=== PATIENT | male | born 1965 | race Caucasian/White ===

== ENCOUNTER 2022-12-05 09:47 | Emergency (ER) | payer OTHER, SELFPAY ==
[2022-12-05 09:48] VITALS: BP 209/112; PULSE 100; RESP 16; TEMP 36.3; O2SAT 97; BMI 37.8
--- NOTE | 2022-12-05 10:08 | CT_ITS ---
STUDY: CT ABDOMEN AND PELVIS WITHOUT CONTRAST REASON FOR EXAM: Male, 57 years old. R flank Pain. 2 day history of right lower quadrant pain and nausea. RADIATION DOSAGE (If Supplied By Facility): CTDIvol = ( 20.23 ) mGy, DLP = ( 1152.59 ) mGycm TECHNIQUE: Transaxial images were obtained from the dome of the diaphragm to the symphysis pubis without oral contrast, and without intravenous contrast. Sagittal and coronal images were reconstructed. Individualized dose optimization techniques were used for this CT. COMPARISON: None. FINDINGS: The visualized lung bases are unremarkable. The visualized portions of the heart are within normal limits. There is decreased attenuation of the liver consistent with steatosis. Normal gallbladder and extrahepatic biliary system. Normal spleen. Normal pancreas. Normal bilateral adrenal glands. Normal right kidney. Normal left kidney. Normal visualized stomach. Normal small intestine. Normal colon. The appendix is visualized and appears normal. There is scattered atherosclerotic calcification of the abdominal aorta, without a demonstrated aneurysm. Normal inferior vena cava. There is borderline retroperitoneal lymphadenopathy with enlarged nodes no greater than 10mm in the short axis diameter. Normal urinary bladder. Normal abdominal wall. Normal osseous structures. CT/Abdomen/Pelvis without Cont IMPRESSION: Fatty infiltration of the liver. No evidence of obstructive uropathy. Electronically Signed: Yared Albrecht MD at 11:06 EDT ,
--- NOTE | 2022-12-05 10:10 | EDS_ITS ---
HPI <LUIS E Toribio - Last Filed: 12/05/22 13:01> History of Present Illness Chief Complaint: Flank Pain Narrative Narrative: Patient presenting today with pain to his right mid back that radiates into his right upper quadrant and right lower quadrant that he has had for the past 2 days. He reports that the pain is worsening. He is nauseous without any vomiting. He reports that it is a constant dull ache. He denies a history of kidney stones. He denies a history of any previous abdominal surgery, fever, chills, diarrhea, and urinary symptoms. Patient also reports that he has a history of hypertension but has been out of his medication for 2 weeks, he is unsure what he takes and he is from [place] but is in town visiting a friend. PFSH <LUIS E Toribio - Last Filed: 12/05/22 13:01> PENDING SALE TO [facility] Medical History no medical history Home Medications amlodipine 5 mg tablet (Norvasc) 5 mg PO DAILY #14 tabs 12/05/22 [Rx Last Taken Unknown] naproxen 500 mg tablet (Naprosyn) 500 mg PO BID PRN pain #10 tabs 12/05/22 [Rx Last Taken Unknown] Allergy/AdvReac Type Severity Reaction Status Date / Time No Known Allergies Allergy Verified 12/05/22 09:50 Social History Smoking Status: Unknown if ever smoked ROS <LUIS E Toribio - Last Filed: 12/05/22 13:01> ROS ED Constitutional Constitutional ED: Denies chills or fever(s) Cardiovascular Cardiovascular: Denies chest pain or palpitations Respiratory/Chest Respiratory/Chest: Denies cough or dyspnea Gastrointestinal Gastrointestinal: Reports abdominal pain and nausea; Denies constipation, diarrhea or vomiting Genitourinary Genitourinary ED: Denies dysuria, hematuria or urinary urgency Musculoskeletal Musculoskeletal: Reports back pain; Denies arthralgias or myalgias Integumentary Denies abscess, Abrasions or rash Neurologic Neurologic: Denies weakness EXAM <LUIS E Toribio - Last Filed: 12/05/22 13:01> Physical Exam Const Vital Signs: 12/05/22 09:48 12/05/22 09:55 12/05/22 11:40 Temperature 97.4 F L Temperature Source Temporal Pulse Rate 100 96 Respiratory Rate 16 Respiratory Pattern Normal Blood Pressure 209/112 H Blood Pressure Mean 144 Pulse Ox 97 98 Oxygen Delivery Method Room Air Positive well nourished, well developed and no apparent distress General Appearance ED: well developed HEENT Reports normocephalic and head/scalp atraumatic Mouth ED: Yes moist mucous membranes normal Eyes PERRL and EOMs intact bilaterally Neck full ROM and supple Chest Wall inspection of chest normal Resp normal respiratory effort and clear to auscultation bilaterally Cardio regular rate and regular rhythm GI soft to palpation, non-tender, non-distended and no masses GI Narrative: RUQ tenderness to palpation Back/Spine normal ROM and normal to inspection Extremity normal to inspection and full ROM Neuro oriented x3, CN's II-XII intact bilaterally, moves all extremities, no focal motor deficits and no sensory deficits noted Sensorium / Orientation: awake and alert Psych mental status grossly normal and thought process normal Skin no rashes or lesions noted and no wounds <Dr. Max Castro DO - Last Filed: 12/05/22 12:55> Physical Exam Const Vital Signs: 12/05/22 09:48 12/05/22 09:55 12/05/22 11:40 Temperature 97.4 F L Temperature Source Temporal Pulse Rate 100 96 Respiratory Rate 16 Respiratory Pattern Normal Blood Pressure 209/112 H Blood Pressure Mean 144 Pulse Ox 97 98 Oxygen Delivery Method Room Air [facility] <LUIS E Toribio - Last Filed: 12/05/22 13:01> [facility] Narrative Medical decision making narrative: Patient presenting today due to right-sided mid back pain that radiates into his right upper quadrant that he has had over the past few days. 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 He denies a history of kidney stones as well as urin joel symptoms. He feels nauseous due to the pain but has not had any vomiting. He also reports a history of hypertension but is unsure what medications he is supposed to be taking as his PCP retired and he has been out of his blood pressure meds for a few weeks. He is not from the area and is visiting a friend from out of town. I will give him a short course of Norvasc and have given him instructions to follow-up with a PCP in his area. He is not complaining of any chest pain here or shortness of breath. Labs obtained to rule out leukocytosis, anemia, electrolyte abnormality, hepatobiliary etiology, UTI and PATY. Patient has been given IV Zofran and Toradol. On reexamination he reports that his pain is improved. Labs overall are unremarkable aside from a slightly elevated bilirubin and hypokalemia. CT negative for any acute findings. Will give patient a prescription for naproxen to treat possible muscular etiology. He has been given return instructions and be discharged home in stable condition. He is comfortable with plan. Lab Data Attestation: I reviewed the patient's lab results. Labs: Laboratory Results - last 24 hr 12/05/22 12/05/22 10:15 10:30 WBC 5.6 RBC 5.11 Hgb 15.7 Hct 45.6 MCV 89.2 MCH 30.7 MCHC 34.4 RDW Std Deviation 39.8 RDW Coeff of Suzi 12.3 Plt Count 239 MPV 9.9 Immature Gran % (Auto) 0.500 Neut % (Auto) 75.6 H Lymph % (Auto) 13.2 L Chambers % (Auto) 9.3 Eos % (Auto) 0.7 Baso % (Auto) 0.7 Absolute Neuts (auto) 4.3 Absolute Lymphs (auto) 0.74 L Nucleated RBC % 0 Sodium 140 Potassium 3.0 L Chloride 108 H Carbon Dioxide 28.0 Anion Gap 4 L BUN 11 Creatinine 1.06 Estim Creat Clear Calc 79.39 Est GFR (MDRD) Af Amer 93 Est GFR (MDRD) Non-Af 77 BUN/Creatinine Ratio 10.4 Glucose 138 H Calcium 8.8 Total Bilirubin 1.50 H AST 12 L ALT 28 Alkaline Phosphatase 96 Total Protein 7.3 Albumin 3.8 Globulin 3.5 Albumin/Globulin Ratio 1.1 Urine Color Yellow Urine Clarity Cloudy Urine pH 7.0 Ur Specific [place] 1.010 Urine Protein 15 H Urine Glucose (UA) Normal Urine Ketones Negative Urine Occult Blood 25 H Urine Nitrite Negative Urine Bilirubin Negative Urine Urobilinogen Normal Ur Leukocyte Esterase Negative Urine RBC 0-5 SEEN Urine WBC 0-5 SEEN Ur Squamous Epith Cells 0 SEEN Amorphous Sediment 1+ Urine Bacteria 0 SEEN Urine Mucus 0 SEEN Radiography Diagnostic Testing: Clinical Impression(s) from Imaging Studies Abdomen/Pelvis CT 12/05/22 10:08 IMPRESSION: Fatty infiltration of the liver. No evidence of obstructive uropathy. Electronically Signed: Yared Albrecht MD at 11:06 EDT , <Dr. Max Castro, DO - Last Filed: 12/05/22 12:55> [facility] Lab Data Labs: Laboratory Results - last 24 hr 12/05/22 12/05/22 10:15 10:30 WBC 5.6 RBC 5.11 Hgb 15.7 Hct 45.6 MCV 89.2 MCH 30.7 MCHC 34.4 RDW Std Deviation 39.8 RDW Coeff of Suzi 12.3 Plt Count 239 MPV 9.9 Immature Gran % (Auto) 0.500 Neut % (Auto) 75.6 H Lymph % (Auto) 13.2 L Chambers % (Auto) 9.3 Eos % (Auto) 0.7 Baso % (Auto) 0.7 Absolute Neuts (auto) 4.3 Absolute Lymphs (auto) 0.74 L Nucleated RBC % 0 Sodium 140 Potassium 3.0 L Chloride 108 H Carbon Dioxide 28.0 Anion Gap 4 L BUN 11 Creatinine 1.06 Estim Creat Clear Calc 79.39 Est GFR (MDRD) Af Amer 93 Est GFR (MDRD) Non-Af 77 BUN/Creatinine Ratio 10.4 Glucose 138 H Calcium 8.8 Total Bilirubin 1.50 H AST 12 L ALT 28 Alkaline Phosphatase 96 Total Protein 7.3 Albumin 3.8 Globulin 3.5 Albumin/Globulin Ratio 1.1 Urine Color Yellow Urine Clarity Cloudy Urine pH 7.0 Ur Specific [place] 1.010 Urine Protein 15 H Urine Glucose (UA) Normal Urine Ketones Negative Urine Occult Blood 25 H Urine Nitrite Negative Urine Bilirubin Negative Urine Urobilinogen Normal Ur Leukocyte Esterase Negative Urine RBC 0-5 SEEN Urine WBC 0-5 SEEN Ur Squamous Epith Cells 0 SEEN Amorphous Sediment 1+ Urine Bacteria 0 SEEN Urine Mucus 0 SEEN Radiography Diagnostic Testing: Clinical Impression(s) from Imaging Studies Abdomen/Pelvis CT 12/05/22 10:08 IMPRESSION: Fatty infiltration of the liver. No evidence of obstructive uropathy. Electronically Signed: Yared Albrecht MD at 11:06 EDT , Treatment and Re-Evaluation :: I have personally performed a face to face assessment of the patient and have reviewed the ALYSE Note. I performed a substantive portion of the visit including all aspects of the following. My krishnamurthy findings include: History: Patient presents with right flank and right upper abdominal pain that began last night. Patient states it has gradually gotten worse. Patient states it radiates to his right upper quadrant. Patient states nothing makes it better nothing makes it worse. Patient denies any fevers or chills. Patient admits to some nausea but denies any vomiting. Patient denies any diarrhea, melena, or hematochezia. Patient denies any dysuria, hematuria, or frequency. Exam: Vital signs are stable except for elevated blood pressure of 209/112. Patient is afebrile. Patient is in no acute distress. Oral mucosa is pink and moist. Neck is supple. Trachea is midline. No JVD. Heart was regular rate and rhythm. Lungs are clear and equal bilaterally. Abdomen is soft. Bowel sounds are normal. There is some mild right CVA tenderness. There is mild right upper quadrant tenderness. There is no rebound or guarding noted. Purdy sign was negative. Cranial nerves II through XII are intact. There are no focal motor or sensory deficits noted. Medical Decision Making: Differential diagnosis includes cholecystitis, cholelithiasis, ureteral calculus, pyelonephritis, peptic ulcer disease, duodenal ulcer, bowel obstruction, and perforation. CBC will be obtained to assess for leukocytosis and anemia. Comprehensive metabolic profile will be obtained to assess for hepatic function, renal function, and electrolyte abnormality. Urinalysis will be obtained to assess for urinary tract infection. CT scan of the abdomen pelvis will be obtained to assess for cholelithiasis, cholecystitis, and ureteral calculus. CBC was reviewed and was within normal limits. Comprehensive metabolic profile was reviewed. Potassium was slightly low at 3.0. Total bilirubin was slightly elevated at 1.5 but the remainder was within normal limits. Urinalysis was reviewed. There is no evidence of urinary tract infection or hematuria. CT sc an of the abdomen and pelvis was obtained. There is no evidence of obstructive uropathy. There is fatty infiltration of the liver. There are no gallstones noted. This was interpreted by the radiologist and was also independently reviewed by myself. Patient was advised of his findings. Patient is feeling better on reevaluation. Patient was given a prescription for a short course of Norvasc for his blood pressure. Patient was instructed to follow-up with his primary care physician in 5 to 7 days for further evaluation. Patient understands and is agreeable with the plan. All questions were answered. Discharge Plan Triage Chief Complaint: Flank Pain ED Midlevel Provider: Earlene Dial ED Provider: Max Castro Dx/Rx/DC Orders Clinical Impression: Acute flank pain, Hypertension Instructions: ED Flank Pain, Uncertain Cause, ED High Blood Pressure Hypertension Prescriptions: New amlodipine [Norvasc] 5 mg tablet 5 mg PO DAILY Qty: 14 0RF naproxen [Naprosyn] 500 mg tablet 500 mg PO BID PRN (Reason: pain) Qty: 10 0RF Primary Care Provider: Care Physician,No Primary Referrals: Care Physician,No Primary [Primary Care Provider] - Activity Restrictions/Additional Instructions: Please take blood pressure medication daily and follow-up with PCP in your area. Disposition Disposition: Home, Self Care Discharge Date/Time: 12/05/22 11:42
[2022-12-05] MEDS: Ketorolac 30 MG/ML Syringe IV (10:19)
[2022-12-05] MEDS: Ondansetron 4 MG/2 ML Vial IV (10:20)
[2022-12-05 10:31] LABS: Absolute Lymphocyte Count 0.74 X10^3/uL (0.83-4.51); Absolute Neutrophil Count 4.3 X10^3/uL (2.0-7.7); Basophil# 0.04 X10^3/uL; Basophil% 0.7 % (0-1); Eosinophil# 0.04 X10^3/uL; Eosinophils% 0.7 % (0-5); Hematocrit 45.6 % (40-54); Hemoglobin 15.7 g/dL (13.0-16.5); Lymphocyte # 0.74 X10^3/ul (0.83-4.51); Lymphocyte % 13.2 % (19-41); Mean Corp Hgb Conc 34.4 g/dL (32-36); Mean Corpuscular Hgb 30.7 pg (27.0-32.0); Mean Corpuscular Volume 89.2 fL (80-94); Mean Platelet Vol. 9.9 fl (6.2-12.0); Monocyte# 0.52 X10^3/uL; Monocyte% 9.3 % (0-10); NRBC Flagged by Analyzer 0 % (0-5); Neutrophil # 4.25 X10^3/uL (2.7-7.7); Neutrophil % 75.6 % (47-70); Platelet Count 239 K/mm3 (150-450); RBC Distribution Width CV 12.3 % (11.6-14.6); RBC Distribution Width SD 39.8 fl (35.1-43.9); Red Blood Count 5.11 M/mm3 (4.6-6.2); White Blood Count 5.6 K/mm3 (4.4-11.0)
[2022-12-05 10:33] LABS: Bacteria 0 SEEN /hpf (None Seen); Mucous, Urine 0 SEEN /hpf (<or=2+); Squamous Epithelial Cells - UA 0 SEEN /hpf (0-5)
[2022-12-05 10:38] LABS: Color, Urine Yellow (Yellow); Glucose, Dipstick Normal (Normal); Ketone-Dipstick Negative (Negative); Leukocyte Esterase-Dipstick Negative /ul (Negative); Nitrite-Dipstick Negative (Negative); Occult Blood-Urine 25 /ul (Negative); Protein-Dipstick 15 mg/dl (Negative); Urine Bilirubin Dipstick Negative (Negative); Urine Clarity Cloudy (Clear); Urine Urobilinogen Normal (Normal)
[2022-12-05 10:47] LABS: ALB/GLOB Ratio 1.1 RATIO (0.9-2.4); AST(SGOT) 12 U/L (15-37); Alanine Aminotransfer ALT/SGPT 28 U/L (16-61); Albumin, Serum 3.8 g/dL (3.2-5.0); Alkaline Phosphatase 96 U/L (45-117); Anion Gap 4 (5-15); BUN 11 mg/dL (7-18); BUN/Creat Ratio 10.4 RATIO (10-20); Calcium,Total 8.8 mg/dL (8.5-10.1); Chloride 108 mmol/L (98-107); Creatinine, Serum 1.06 mg/dL (0.70-1.30); EST Glomerular Filtration Rate 77 mL/min (>60); Est Glom Filt Rate - Afr Amer 93 mL/min (>60); Estimated Creatinine Clearance 79.39 ml/min; Globulin 3.5 g/dL (2.2-4.2); Glucose 138 mg/dL (74-106); Protein, Total 7.3 g/dL (6.4-8.2); Sodium Level 140 mmol/L (136-145)
[2022-12-05 10:51] LABS: Amorphous Sediment 1+; Red Blood Cells-Urine 0-5 SEEN /hpf (0-5); White Blood Cells 0-5 SEEN /hpf (0-5)
[2022-12-05 11:40] VITALS: PULSE 96; O2SAT 98
== END 2022-12-05 11:42 | disposition home or self-care (01) ==
PROVIDERS: Physician Assistant; Emergency Provider Emergency Medicine; Visit Provider Emergency Medicine
DX: R10.11 Right upper quadrant pain (principal); R10.31 Right lower quadrant pain; M54.9 Dorsalgia, unspecified; R11.0 Nausea; I10 Essential (primary) hypertension; Z79.899 Other long term (current) drug therapy
CPT/HCPCS: 74176; 80053; 81001; 85025; 96374; 96375; 99284; A4216; J2405